=== PATIENT | female | born 1955 | race Caucasian/White ===

== ENCOUNTER 2016-03-26 14:42 | Outpatient (CLI) | payer BC | END 2016-03-26 14:43 | disposition home or self-care (01) | DX: Z01.818 Encounter for other preprocedural examination (principal) ==

== ENCOUNTER 2016-04-23 14:22 | Outpatient (CLI) | payer BC | END 2016-04-23 14:23 | disposition home or self-care (01) | DX: Z01.818 Encounter for other preprocedural examination (principal) ==

== ENCOUNTER 2016-06-27 07:27 | Outpatient (CLI) | payer BC ==
[2016-06-27 08:15] LABS: ALBUMIN/GLOBULIN RATIO 1.7 (1.0-2.2); BILIRUBIN,TOTAL 0.6 mg/dL (0.2-1.0); BUN - BLOOD UREA NITROGEN 15 mg/dL (6-20); CALCIUM 9.4 mg/dL (8.5-10.3); CARBON DIOXIDE - CO2 28 mmol/L (21-32); CHLORIDE 107 mmol/L (101-111); CHOLESTEROL 171 mg/dL; CREATININE 0.6 mg/dL (0.4-1.0); GFR - MDRD 102 (>89); GLUCOSE 88 mg/dL (70-100); HDL CHOLESTEROL 84 mg/dL; SODIUM 143 mmol/L (135-145); TOTAL PROTEIN 7.2 g/dL (6.7-8.2); TRIGLYCERIDES 38 mg/dL
[2016-06-27 08:37] LABS: HEMOGLOBIN A1C 0.94 g/dL
[2016-06-27 08:38] LABS: LDL CHOLESTEROL,DIRECT 76 mg/dL
== END 2016-06-27 07:28 | disposition home or self-care (01) ==
LOC: LAB 07:27
PROVIDERS: ATTEND Nurse Practitioner Family
DX: E11.9 Type 2 diabetes mellitus without complications (principal); E78.5 Hyperlipidemia, unspecified; F32.9 Major depressive disorder, single episode, unspecified
CPT/HCPCS: 36415; 80053; 80061; 82043; 83036; 84443

== ENCOUNTER 2016-09-22 08:00 | Outpatient (CLI) | payer BC ==
[2016-09-22 18:57] LABS: ALBUMIN/GLOBULIN RATIO 1.6 (1.0-2.2); BILIRUBIN,TOTAL 0.7 mg/dL (0.2-1.0); CREATININE 0.6 mg/dL (0.4-1.0); POTASSIUM 3.9 mmol/L (3.5-5.0); TOTAL PROTEIN 6.8 g/dL (6.7-8.2)
[2016-09-22 19:06] LABS: HEMOGLOBIN A1C 0.96 g/dL
== END 2016-09-22 08:01 | disposition home or self-care (01) ==
LOC: LAB.S 08:00
PROVIDERS: ATTEND Nurse Practitioner Family
DX: E11.9 Type 2 diabetes mellitus without complications (principal)
CPT/HCPCS: 36415; 80053; 83036; 84443

== ENCOUNTER 2017-01-14 14:02 | Emergency (ER) | payer OTHER, BC ==
--- NOTE | 2017-01-14 15:26 | XRAY Preliminary Report ---
Exam: XR RIBS W/PA CHEST RT IMPRESSION: Normal chest and rib radiography. [facility] SITE ID: [id number]
--- NOTE | 2017-01-14 15:32 | XRAY Preliminary Report ---
Exam: XR KNEE 4 VIEW LT IMPRESSION: Normal knee radiography. [facility] SITE ID: [id number]
--- NOTE | 2017-01-14 15:42 | XRAY Report ---
EXAM: RIGHT RIB RADIOGRAPHY EXAM DATE: 01/14/2017 02:59 PM. CLINICAL HISTORY: Right rib pain after a fall. COMPARISON: None. TECHNIQUE: 1 view of the chest and 4 views of the ribs. FINDINGS: Bones: Normal. No fracture or bone lesion. A marker was placed in the area of concern and this corres ponds to the anterior aspects of the right seventh and eighth ribs. Lungs: No focal opacities. No pneumothorax. No pleural effusions. Mediastinum: Heart and mediastinal contours are unremarkable. Other: None. IMPRESSION: Normal chest and rib radiography. [facility] Referring Provider Line: [phone] SITE ID: [id number]
--- NOTE | 2017-01-14 15:42 | XRAY Report ---
EXAM: LEFT KNEE RADIOGRAPHY EXAM DATE: 01/14/2017 02:59 PM. CLINICAL HISTORY: Pain after fall. COMPARISON: None. TECHNIQUE: 5 views. FINDINGS: Bones: Normal. No fractures or bone lesions. Joints: Normal. No effusion. No subluxations. Soft Tissues: Normal. No soft tissue swelling. IMPRESSION: Normal knee radiography. [facility] Referring Provider Line: [phone] SITE ID: [id number]
--- NOTE | 2017-01-14 15:51 | ED Physician Documentation ---
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 Rhamnosus GG/Inulin [Culturelle 1 each PO DAILY #14 cap.sprink 03/04/1305/24 Capsule] Metformin HCl [Metformin HCl ER] 1,000 mg PO BID 03/04/13 05/24/14 Zafirlukast 20 mg PO BID 03/04/13 05/24/14 glipiZIDE [Glucotrol] 5 mg PO BID 03/04/13 05/24/14 ALPRAZolam [Xanax] 0.125 - 0.25 mg PO Q6H PRN 03/30/14 05/24/14 Cholecalciferol (Vitamin D3) 1,000 unit PO DAILY 03/30/14 05/24/14 [Vitamin D3] Hyoscyamine [Levsin] 0.125 mg SL TID PRN 03/30/14 05/24/14 Insulin Glargine [Lantus Solostar] 15 unit SUBQ QPM 03/30/14 05/24/14 Propranolol HCl 20 mg PO DAILY PRN 03/30/14 05/24/14 Atorvastatin Calcium [Lipitor] 20 mg PO DAILY 05/24/14 05/24/14 Cyclobenzaprine [Flexeril] 10 mg PO TID PRN #20 tablet 05/24/14 05/24/14 Ibuprofen [Motrin] 400 mg PO Q6H PRN #30 tablet 05/24/14 05/24/14 Oxycodone HCl/Acetaminophen 1 - 2 each PO Q6H PRN #20 tablet 05/24/14 05/24/14 [Percocet 5-325 mg Tablet] Ibuprofen [Motrin] 400 mg PO Q6H PRN #30 tablet 01/14/17 Lidocaine Patch 5% [Lidoderm Patch] 1 each TOP DAILY PRN #10 patch 01/14/17 - Allergies Allergies/Adverse Reactions: Allergies Allergy/AdvReac Type Severity Reaction Status Date / Time sulfamethoxazole Allergy Hives Verified 01/14/17 14:15 [From Bactrim] trimethoprim [From Bactrim] Allergy Hives Verified 01/14/17 14:15 - Social History Does the pt smoke?: No Smoking Status: Never smoker Does the pt drink ETOH?: No Does the pt have substance abuse?: No - Immunizations Immunizations are current?: Yes - POLST Patient has POLST: No PD ED PE NORMAL - Vitals Vital signs reviewed: Yes - HEENT HEENT: Atraumatic - Neck Neck: No bony TTP - Cardiac Cardiac: RRR. No: No murmur (+ murmur not new per pt) - Respiratory Respiratory: No respiratory distress, Clear bilaterally, Other (TTP lateral low R ribs s crepitus) - Abdomen Abdomen: Soft, Non tender, Other (no ruq TTP) - Derm Derm: Normal color - Extremities Extremities: Other (L knee TTP ant lat lt line and patella, quad and patellar tendn NT, no MCL LCL ACL laxity, nl pain catch with meniscal tesnting, MSV intact) Results - Vitals Vitals: Vital Signs - 24 hr 01/14/17 14:10 Temperature 36.3 C L Heart Rate 74 Respiratory 18 Rate Blood Pressure 137/80 H O2 Saturation 100 Oxygen O2 Source Room air - Rads (name of study) ribs Radiology: See rad report (neg) knee Radiology: See rad report (neg) Departure - Departure Disposition: 01 Home, Self Care Clinical Impression: Contusion of rib on right side Qualifiers: Encounter type: initial encounter Qualified Code(s): S20.211A - Contusion of right front wall of thorax, initial encounter Contusion of knee, left Qualifiers: Encounter type: initial encounter Qualified Code(s): S80.02XA - Contusion of left knee, initial encounter Condition: Good Instructions: ED Contusion Rib Follow-Up: Payal Mckay ARNP [Primary Care Provider] - Prescriptions: Ibuprofen [Motrin] 400 mg PO Q6H PRN #30 tablet PRN Reason: Pain Lidocaine Patch 5% [Lidoderm Patch] 1 each TOP DAILY PRN #10 patch PRN Reason: Pain Comments: The xrays are fine - no broken knee or ribs Recommend applying a lidocaine patch to your ribs for 12 hr a day and using an TRINITY wrap for your knee Ice to both areas for 20 min several times a day will help too. Motrin and tylenol for pain in addition to the lidocaine patch Forms: Activity restrictions
[2017-01-14] MEDS ORDERED: LIDOCAINE PATCH 5% TOP STA (15:57)
[2017-01-14] MEDS ORDERED: IBUPROFEN 400 MG TABLET PO STA (15:57)
[2017-01-14 16:13] VITALS: BP 112/78
[2017-01-14] MEDS ORDERED: LIDOCAINE PATCH 5% TOP ONE (16:17)
[2017-01-14] MEDS ORDERED: IBUPROFEN 400 MG TABLET PO ONE (16:17)
== END 2017-01-14 16:19 | disposition home or self-care (01) ==
LOC: ED 14:02
DX: S20.211A Contusion of right front wall of thorax, initial encounter (principal); S80.02XA Contusion of left knee, initial encounter; W01.0XXA Fall on same level from slipping, tripping and stumbling without subsequent striking against object, initial encounter; E11.9 Type 2 diabetes mellitus without complications; Z79.4 Long term (current) use of insulin; E78.00 Pure hypercholesterolemia, unspecified; J45.909 Unspecified asthma, uncomplicated
CPT/HCPCS: 1040M; 71101; 73564; 99283; A9270

== ENCOUNTER 2017-05-01 08:00 | Outpatient (CLI) | payer BC ==
[2017-05-01 18:49] LABS: HB2 TOTAL 14.4 g/dL; HEMOGLOBIN A1C 0.94 g/dL; HEMOGLOBIN A1C % 8.1 % (4.6-6.2)
== END 2017-05-01 08:01 | disposition home or self-care (01) ==
LOC: LAB.F 08:00
PROVIDERS: ATTEND Nurse Practitioner Family
DX: E11.9 Type 2 diabetes mellitus without complications (principal)
CPT/HCPCS: 36415; 83036

== ENCOUNTER 2017-07-30 07:13 | Outpatient (CLI) | payer BC ==
[2017-07-30 11:50] LABS: BASOPHILS % (AUTO) 1.1 %; EOSINOPHILS # (AUTO) 0.3 10^3/uL (0.0-0.7); EOSINOPHILS % (AUTO) 7.4 %; HGB - HEMOGLOBIN 13.4 g/dL (12.0-16.0); LYMPHOCYTES # (AUTO) 1.6 10^3/uL (1.5-3.5); LYMPHOCYTES % (AUTO) 36.5 %; MEAN CORPUSCULAR HEMOGLOBIN 32.2 pg (27.0-31.0); MEAN CORPUSCULAR HGB CONC 33.9 g/dL (32.0-36.0); MEAN CORPUSCULAR VOLUME 94.8 fL (81.0-99.0); MEAN PLATELET VOLUME 9.7 fL (7.9-10.8); MONOCYTES # (AUTO) 0.3 10^3/uL (0.0-1.0); MONOCYTES % (AUTO) 6.1 %; NEUTROPHILS # (AUTO) 2.1 10^3/uL (1.5-6.6); NEUTROPHILS % (AUTO) 48.9 %; PLT - PLATELET COUNT 286 10^3/uL (130-450); RED BLOOD COUNT 4.16 10^6/uL (4.20-5.40); RED CELL DISTRIBUTION WIDTH 13.3 % (12.0-15.0); WHITE BLOOD COUNT 4.3 x10^3/uL (4.8-10.8)
[2017-07-30 12:20] LABS: ALBUMIN 3.9 g/dL (3.2-5.5); ALBUMIN/GLOBULIN RATIO 1.3 (1.0-2.2); ALKALINE PHOSPHATASE 73 IU/L (42-121); ALT ALANINE AMINOTRANSFERASE 19 IU/L (10-60); AST ASPARTATE AMINOTRANSFERASE 19 IU/L (10-42); BILIRUBIN,TOTAL 0.6 mg/dL (0.2-1.0); BUN - BLOOD UREA NITROGEN 14 mg/dL (6-20); CALCIUM 8.9 mg/dL (8.5-10.3); CARBON DIOXIDE - CO2 27 mmol/L (21-32); CHLORIDE 103 mmol/L (101-111); CHOL/HDL RATIO 2.2 (<4.4); CHOLESTEROL 157 mg/dL; CREATININE 0.8 mg/dL (0.4-1.0); GFR - MDRD 73 (>89); GLUCOSE 199 mg/dL (70-100); HDL CHOLESTEROL 72 mg/dL; LDL CHOLESTEROL,CALCULATED 76 mg/dL; LDL/HDL RATIO 1.1 (<4.4); SODIUM 136 mmol/L (135-145); TOTAL PROTEIN 6.9 g/dL (6.7-8.2); VLDL CHOLESTEROL 9 mg/dL
[2017-07-30 12:42] LABS: HB2 TOTAL 14.4 g/dL; HEMOGLOBIN A1C 0.86 g/dL; HEMOGLOBIN A1C % 7.6 % (4.6-6.2)
== END 2017-07-30 07:14 | disposition home or self-care (01) ==
LOC: LAB.F 07:13
PROVIDERS: ATTEND Nurse Practitioner Family
DX: Z79.4 Long term (current) use of insulin (principal); E78.5 Hyperlipidemia, unspecified; E11.9 Type 2 diabetes mellitus without complications; F32.9 Major depressive disorder, single episode, unspecified
CPT/HCPCS: 36415; 80053; 80061; 82043; 83036; 83721; 84443; 85025

== ENCOUNTER 2018-02-19 07:05 | Outpatient (CLI) | payer BC ==
[2018-02-19 11:51] LABS: ALBUMIN 4.1 g/dL (3.2-5.5); ALBUMIN/GLOBULIN RATIO 1.4 (1.0-2.2); BILIRUBIN,TOTAL 0.5 mg/dL (0.2-1.0); CALCIUM 9.6 mg/dL (8.5-10.3); CREATININE 0.6 mg/dL (0.4-1.0)
[2018-02-19 12:16] LABS: HB2 TOTAL 15.1 g/dL; HEMOGLOBIN A1C 1.04 g/dL; HEMOGLOBIN A1C % 8.5 % (4.6-6.2)
== END 2018-02-19 07:06 | disposition home or self-care (01) ==
LOC: LAB.F 07:05
PROVIDERS: ATTEND Nurse Practitioner Family
DX: E11.9 Type 2 diabetes mellitus without complications (principal); F32.9 Major depressive disorder, single episode, unspecified
CPT/HCPCS: 36415; 80053; 82043; 83036; 84443

== ENCOUNTER 2018-03-31 16:00 | Outpatient (CLI) | payer BC ==
--- NOTE | 2018-04-01 08:24 | Mammography Report ---
Reason: SCREENING MAMMO Procedure Date: 03/31/2018 Accession Number: [id number] / [id number] Procedure: SHIRA - Screening Mammo w/Ayo CPT Code: FULL RESULT: EXAM: Screening Mammo w/Ayo DATE: 03/31/2018 4:34 PM CLINICAL HISTORY: Screening encounter. No reported risk factors. TECHNIQUE: Bilateral CC and MLO views were obtained. COMPARISON: 07/24/2009. FINDINGS: The breasts demonstrate scattered fibroglandular densities bilaterally. In the left upper outer breast approximately 11 cm from the nipple, also seen on the left MLO image 21 is a 0.6 cm ill-defined hyperdense nodule with partially obscured margins which requires additional imaging by spot views and ultrasound. While the finding is identified on the cc view, exact localization of depth on the tomographic CC images is difficult raising the question of at least partial contribution by tissue overlap. No suspicious masses, clustered microcalcifications, or regions of architectural distortion are identified in the right breast. IMPRESSION: Incomplete examination RECOMMENDATION: Additional evaluation of the left upper outer breast by spot views and ultrasound as described. BIRADS CATEGORY 0: Incomplete examination STANDARD QUALIFYING STATEMENTS: 1. This examination was not reviewed with the aid of Computer-Aided Detection (CAD). 2. A negative or benign imaging report should not delay biopsy if clinically suspicious findings are present. Consider surgical consultation if warrented. More than 5% of cancers are not identified by imaging. 3. Dense breasts may obscure an underlying neoplasm. 4. This examination was reviewed with the aid of 3D breast imaging (tomosynthesis).
== END 2018-03-31 16:01 | disposition home or self-care (01) ==
LOC: DI 16:00
PROVIDERS: ATTEND Nurse Practitioner Family
DX: Z12.31 Encounter for screening mammogram for malignant neoplasm of breast (principal)
CPT/HCPCS: 77063; 77067

== ENCOUNTER 2018-04-07 14:19 | Outpatient (CLI) | payer BC ==
--- NOTE | 2018-04-07 16:26 | Mammography Report ---
Reason: ABN MAMMO - LT SPEC VIEWS Procedure Date: 04/07/2018 Accession Number: [id number] / [id number] Procedure: SHIRA - Diag Special Views Dig LT CPT Code: FULL RESULT: EXAM: Diag Special Views Dig LT DATE: 04/07/2018 3:08 PM CLINICAL HISTORY: Diagnostic mammogram. The patient is recalled from screening for a finding in the left upper outer breast. TECHNIQUE: Left breast spot CC, spot MLO and ML views are obtained. COMPARISON: 03/31/2018 and 07/24/2009. FINDINGS: The left breast demonstrates scattered fibroglandular densities. The previously seen finding characterized as a hyperdense partially obscured nodule is identified as overlap of normal tissue on spot views in all projections, typically benign finding. No suspicious masses, architectural distortions or calcifications are identified. IMPRESSION: Benign findings RECOMMENDATION: Recommend routine annual Screening mammography unless otherwise clinically indicated. BIRADS CATEGORY 2: Benign findings STANDARD QUALIFYING STATEMENTS: 1. This examination was not reviewed with the aid of Computer-Aided Detection (CAD). 2. A negative or benign imaging report should not delay biopsy if clinically suspicious findings are present. Consider surgical consultation if warrented. More than 5% of cancers are not identified by imaging. 3. Dense breasts may obscure an underlying neoplasm. 4. This examination was reviewed with the aid of 3D imaging (tomography).
== END 2018-04-07 14:20 | disposition home or self-care (01) ==
LOC: DI 14:19
PROVIDERS: ATTEND Nurse Practitioner Family
DX: R92.2 Inconclusive mammogram (principal)

== ENCOUNTER 2018-09-30 06:56 | Outpatient (CLI) | payer BC ==
[2018-09-30 11:27] LABS: HB2 TOTAL 14.1 g/dL; HEMOGLOBIN A1C 0.83 g/dL; HEMOGLOBIN A1C % 7.5 % (4.6-6.2)
== END 2018-09-30 06:57 | disposition home or self-care (01) ==
LOC: LAB.S 06:56
PROVIDERS: ATTEND Registered Nurse
DX: E11.9 Type 2 diabetes mellitus without complications (principal)
CPT/HCPCS: 36415; 83036

== ENCOUNTER 2018-12-24 07:02 | Outpatient (CLI) | payer BC ==
[2018-12-24 10:52] LABS: HB2 TOTAL 14.3 g/dL; HEMOGLOBIN A1C 0.78 g/dL; HEMOGLOBIN A1C % 7.1 % (4.6-6.2)
== END 2018-12-24 07:03 | disposition home or self-care (01) ==
LOC: LAB.S 07:02
PROVIDERS: ATTEND Registered Nurse
DX: E11.9 Type 2 diabetes mellitus without complications (principal)
CPT/HCPCS: 36415; 83036

== ENCOUNTER 2019-02-16 08:38 | Outpatient (CLI) | payer BC ==
[2019-02-16 16:57] LABS: BASOPHILS # (AUTO) 0.1 10^3/uL (0.0-0.1); BASOPHILS % (AUTO) 1.1 %; EOSINOPHILS # (AUTO) 0.5 10^3/uL (0.0-0.7); EOSINOPHILS % (AUTO) 7.1 %; HGB - HEMOGLOBIN 13.6 g/dL (12.0-16.0); LYMPHOCYTES # (AUTO) 1.7 10^3/uL (1.5-3.5); LYMPHOCYTES % (AUTO) 27.5 %; MEAN CORPUSCULAR HEMOGLOBIN 32.1 pg (27.0-31.0); MEAN CORPUSCULAR HGB CONC 32.5 g/dL (32.0-36.0); MEAN CORPUSCULAR VOLUME 98.8 fL (81.0-99.0); MEAN PLATELET VOLUME 11.4 fL (7.9-10.8); MONOCYTES # (AUTO) 0.4 10^3/uL (0.0-1.0); MONOCYTES % (AUTO) 5.9 %; NEUTROPHILS # (AUTO) 3.7 10^3/uL (1.5-6.6); NEUTROPHILS % (AUTO) 58.2 %; PLT - PLATELET COUNT 337 10^3/uL (130-450); RED BLOOD COUNT 4.24 10^6/uL (4.20-5.40); RED CELL DISTRIBUTION WIDTH 12.6 % (12.0-15.0); WHITE BLOOD COUNT 6.3 x10^3/uL (4.8-10.8)
[2019-02-16 17:23] LABS: ALBUMIN 4.4 g/dL (3.2-5.5); ALBUMIN/GLOBULIN RATIO 1.9 (1.0-2.2); ALKALINE PHOSPHATASE 68 IU/L (42-121); ALT ALANINE AMINOTRANSFERASE 16 IU/L (10-60); AST ASPARTATE AMINOTRANSFERASE 17 IU/L (10-42); BUN - BLOOD UREA NITROGEN 17 mg/dL (6-20); CALCIUM 9.1 mg/dL (8.5-10.3); CARBON DIOXIDE - CO2 27 mmol/L (21-32); CHLORIDE 105 mmol/L (101-111); CHOL/HDL RATIO 2.7 (<4.4); CHOLESTEROL 256 mg/dL; CREATININE 0.6 mg/dL (0.4-1.0); GFR - MDRD 102 (>89); GLUCOSE 143 mg/dL (70-100); HDL CHOLESTEROL 94 mg/dL; LDL CHOLESTEROL,CALCULATED 145 mg/dL; LDL/HDL RATIO 1.5 (<4.4); SODIUM 140 mmol/L (135-145); TOTAL PROTEIN 6.7 g/dL (6.7-8.2); VLDL CHOLESTEROL 17 mg/dL
[2019-02-16 17:32] LABS: HB2 TOTAL 13.2 g/dL; HEMOGLOBIN A1C 0.81 g/dL; HEMOGLOBIN A1C % 7.8 % (4.6-6.2)
== END 2019-02-16 08:39 | disposition home or self-care (01) ==
LOC: LAB.S 08:38
PROVIDERS: ATTEND Registered Nurse
DX: E11.9 Type 2 diabetes mellitus without complications (principal); E78.5 Hyperlipidemia, unspecified; J45.909 Unspecified asthma, uncomplicated
CPT/HCPCS: 36415; 80053; 80061; 83036; 83721; 84443; 85025

== ENCOUNTER 2019-04-05 08:34 | Outpatient (CLI) | payer BC | END 2019-04-05 23:59 | disposition home or self-care (01) | LOC: LAB.R 08:34 | PROVIDERS: ATTEND Registered Nurse | DX: J02.9 Acute pharyngitis, unspecified (principal) | CPT/HCPCS: 87070 ==

== ENCOUNTER 2019-09-02 09:43 | Outpatient (CLI) | payer BC ==
[2019-09-02 11:04] VITALS: BP 128/74
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
== END 2019-09-02 09:44 | disposition home or self-care (01) ==
LOC: SC 09:43
PROVIDERS: ATTEND Nurse Practitioner Family
DX: G47.00 Insomnia, unspecified (principal); R06.83 Snoring; G47.9 Sleep disorder, unspecified; R41.3 Other amnesia; G47.10 Hypersomnia, unspecified; J39.8 Other specified diseases of upper respiratory tract; E66.9 Obesity, unspecified; Z68.30 Body mass index [BMI] 30.0-30.9, adult; Z82.0 Family history of epilepsy and other diseases of the nervous system
CPT/HCPCS: 99204; 99212

== ENCOUNTER → 2019-10-02 | Outpatient (CLI) | payer BC | LOC: SC 19:30 | PROVIDERS: ATTEND Nurse Practitioner Family | DX: R06.83 Snoring (principal); G47.10 Hypersomnia, unspecified; R53.83 Other fatigue; G47.8 Other sleep disorders; E11.9 Type 2 diabetes mellitus without complications; E66.3 Overweight; Z68.30 Body mass index [BMI] 30.0-30.9, adult | CPT/HCPCS: 95806 ==

== ENCOUNTER 2019-12-29 09:04 | Outpatient (CLI) | payer BC ==
--- NOTE | 2019-12-29 08:59 | SLEEP CARE CONSULTATION ---
Information from patient questionnaire entered by Sierra Vora. I have reviewed and concur with the information entered by Sierra Vora. This document represents the service I personally performed and the decisions made by , Arelis Phillips ARNP. History of Present Illness Service Date and Time: 12/29/2019 0840 Initial [place] Sleepiness Scale score: 5 (in 2020) Current [place] Sleepiness Scale score: 4 Additional HPI information: ANU CRUMP returns via Telehealth visit for follow up and results of the recently performed home sleep study. The patient was informed of the following findings: no significant sleep diso rdered breathing with an AHI 3.4 and sarina oxygen saturation of 68.7%. I explained the pathophysiology behind obstructive sleep apnea. Patient does not have sleep apnea and was advised how weight gain could increase the risk of developing sleep apnea in the future. Patient does not have significant sleep disordered breathing but has elevated AHI in supine position so advised positional therapy. Methods to achieve positional management therapy were discussed. Patient has light snoring. Snoring can be reduced by weight loss. Weight loss is best achieved with diet consult. Patient instructed to contact PCP for referral. Snoring can also be treated with an oral appliance from a dentist. Advised to check insurance coverage. In addition, an ENT evaluation can be do to see if other treatment is indicated. Patient counseled not drink alcohol less than 4 hours before bedtime as it can increase snoring and apnea. Patient was cautioned about risks of drowsy driving until sleepiness symptoms resolve. Sleep Study - Results Type of Sleep Study: Home sleep study Prior sleep studies: No Polysomnography/Home Sleep Study results: Based on 4% Calculation: The AHI 4% calculation of 3.4 per hour of recording time was based on a total of 24 scored apneas and 9 scored hypopneas with 4% desaturations. Supine AHI4%: 6.4 per hour. Non-supine AHI4%: 2.6 per hour. Oxygen Summary: Patient's baseline O2 saturation was 95.1 %. The patient spent 3.0 minutes at an oxygen saturation less than 90%, and 1.2 minutes less than 85%. The desaturation index was 3.4 events per hour sleep time. The lowest saturation was 68.7 %. SNORING: The percent of the study time spent snoring was 0.0 %. The Snoring Count was 1 . The Snoring Index was 0.1 . PULSE RATE REVIEW: The mean heart rate was 64 beats per minute. The rate ranged from a low of 37 to a high of 90 beats per minute. Allergies and Home Medications Drug allergies reviewed: Yes (sulfa, trimethoprim) Home medication list reviewed: Yes (amytriptyline for sleep) Review of Systems Review of systems same as previous: Yes (no changes) Physical Exam Vital signs obtained and entered by: Telehealth visit to reduce exposure during Covid pandemic, no vitals Height: 5 ft 4 in Impression and Plan Snoring but no significant sleep disordered breathing. Patient advised that often weight loss will reduce snoring as well as apnea risk. An oral appliance can also be used for snoring. This would require a dental consultation. Patient cautioned not to use other online appliances as can cause bite issues. A list of accredited dentists in area and one local dentist who makes oral appliances given. Patient is advised to check if insurance will cover. An ENT consult can also be helpful to determine if any other treatment is an option. * Attempt to lose weight * Avoid alcohol consumption near bedtime * The patient is cautioned about driving until sleepiness is completely resolved. * Return as needed. Counseling Topics: Sleeping position, Weight loss health impact Visit Type: Telehealth Phone Patient Location: at work Location of Provider: Office Patient agrees and consents to this telehealth visit type: Yes Patient agrees to have their insurance billed: Yes Time Spent with Patient (minutes): 15 Provider Statement: I spent 100% of the Telehealth Phone Call with the patient with greater than 50% spent counseling the patient and coordination of care.
== END 2019-12-29 09:05 | disposition home or self-care (01) ==
LOC: SC 09:04
PROVIDERS: ATTEND Nurse Practitioner Family
DX: R06.83 Snoring (principal)

== ENCOUNTER 2020-01-27 10:50 | Outpatient (CLI) | payer BC | END 2020-01-27 23:59 | LOC: LAB.R 10:50 | PROVIDERS: ATTEND Emergency Medicine | DX: R53.83 Other fatigue (principal); Z20.828 Contact with and (suspected) exposure to other viral communicable diseases ==

== ENCOUNTER 2020-01-27 10:56 | Outpatient (CLI) | payer BC ==
--- NOTE | 2020-01-27 11:26 | XRAY Report ---
PROCEDURE: Chest 2 View X-Ray INDICATIONS: Cough and fatigue TECHNIQUE: 2 view(s) of the chest. COMPARISON: None. FINDINGS: Surgical changes and devices: None. Lungs and pleura: No pleural effusions or pneumothorax. Lungs are clear. Mediastinum: Mediastinal contours are normal. Heart size is normal. Bones and chest wall: No suspicious bony abnormalities. Soft tissues appear unremarkable. IMPRESSION: No acute cardiopulmonary process demonstrated radiographically. Reviewed by: Fransico Catherine MD on 01/27/2020 10:24 AM [facility] Approved by: Fransico Catherine MD on 01/27/2020 10:24 AM [facility] Station ID: [id number]
== END 2020-01-27 23:59 | disposition home or self-care (01) ==
LOC: DI.S 10:56
PROVIDERS: ATTEND Emergency Medicine
DX: R05 Cough (principal); R53.83 Other fatigue

== ENCOUNTER 2020-03-09 07:38 | Outpatient (CLI) | payer BC ==
--- NOTE | 2020-03-09 16:47 | XRAY Report ---
PROCEDURE: Hips 3-4V BILAT INDICATIONS: TROCHANTERIC BURSITIS, BILATERAL TECHNIQUE: AP view of the pelvis and crosstable lateral views of each hip. COMPARISON: None. FINDINGS: Bones: No acute fractures or dislocations. No suspicious bony lesions. The visualized pelvic ring appears intact. Mild degenerative changes are seen in the hips bilaterally as well as in the pubic s ymphysis. Soft tissues: No suspicious soft tissue calcifications or masses. Surgical clips are seen projectin g over the right groin. Additional surgical clips projecting over the pelvis bilaterally are likely r elated to prior tubal occlusion. IMPRESSION: No acute osseous abnormality. Mild degenerative changes in the hips bilaterally. Reviewed by: Jasiel Romano MD on 03/09/2020 4:45 PM PST Approved by: Jasiel Romano MD on 03/09/2020 4:45 PM PST Station ID: [id number]
== END 2020-03-09 23:59 | disposition home or self-care (01) ==
LOC: DI.N 07:38
PROVIDERS: ATTEND Physician Assistant
DX: M70.60 Trochanteric bursitis, unspecified hip (principal); M16.0 Bilateral primary osteoarthritis of hip

== ENCOUNTER 2020-05-29 10:10 | Outpatient (CLI) | payer BC ==
[2020-05-29 15:20] LABS: CALCIUM 9.3 mg/dL (8.5-10.3); CREATININE 0.6 mg/dL (0.4-1.0); POTASSIUM 4.4 mmol/L (3.5-5.0)
[2020-05-29 19:44] LABS: ESTIMATED AVERAGE GLUCOSE 186 mg/dL (70-100); HEMOGLOBIN A1c% 8.1 % (4.27-6.07)
== END 2020-05-29 10:11 | disposition home or self-care (01) ==
LOC: LAB.S 10:10
PROVIDERS: ATTEND Registered Nurse
DX: E11.649 Type 2 diabetes mellitus with hypoglycemia without coma (principal)
CPT/HCPCS: 36415; 80048; 83036

== ENCOUNTER 2020-08-30 08:00 | Outpatient (CLI) | payer BC ==
[2020-08-30 18:07] LABS: CALCIUM 9.1 mg/dL (8.5-10.3); CREATININE 0.9 mg/dL (0.4-1.0); POTASSIUM 4.3 mmol/L (3.5-5.0)
[2020-08-30 20:19] LABS: ESTIMATED AVERAGE GLUCOSE 169 mg/dL (70-100); HEMOGLOBIN A1c% 7.5 % (4.27-6.07)
== END 2020-08-30 23:59 | disposition home or self-care (01) ==
LOC: LAB.N 08:00
PROVIDERS: ATTEND Registered Nurse
DX: E11.9 Type 2 diabetes mellitus without complications (principal)
CPT/HCPCS: 36415; 80048; 83036

== ENCOUNTER 2020-08-30 12:00 | Outpatient (CLI) | payer BC | END 2020-08-30 12:01 | disposition home or self-care (01) | LOC: LAB.N 12:00 | PROVIDERS: ATTEND Registered Nurse | DX: E11.9 Type 2 diabetes mellitus without complications (principal) ==

== ENCOUNTER 2020-09-26 12:00 | Outpatient (CLI) | payer BC ==
--- NOTE | 2020-09-27 09:37 | Mammography Report ---
BILATERAL DIGITAL SCREENING MAMMOGRAM 3D/2D: 09/26/2020 CLINICAL: Routine screening. Comparison is made to exams dated: 04/07/2018 mammogram, 03/31/2018 mammogram, and 07/24/2009 mammogram - [facility]. There are scattered fibroglandular elements in both breasts. No significant masses, calcifications, or other findings are seen in either breast. There has been no significant interval change. IMPRESSION: NEGATIVE There is no mammographic evidence of malignancy. A 1 year screening mammogram is recommended. This exam was interpreted at Station ID: [id number]. NOTE: For mammograms, a report in lay terms will be sent to the patient. Approximately 15% of breast malignancies will not be visualized mammographically. In the management of a palpable breast mass, a negative mammogram must not discourage biopsy of a clinically suspicious lesion. Electronically Signed By: Jasiel Romano M.D. ar/[email or web address]:09/26/2020 13:30:23 ACR BI-RADS Category 1: Negative 3341F PARENCHYMAL PATTERN: (A) - The breast(s) demonstrate(s) scattered fibroglandular densities. BI-RADS CATEGORY: (1) - 1 RECOMMENDATION: (ANNUAL) - Recommend routine annual screening mammography. [id number] 1 year screening LATERALITY: (B)
== END 2020-09-26 12:01 | disposition home or self-care (01) ==
LOC: DI.N 12:00
DX: Z12.31 Encounter for screening mammogram for malignant neoplasm of breast (principal)

== ENCOUNTER 2021-02-14 08:42 | Outpatient (CLI) | payer BC ==
[2021-02-14 12:15] LABS: CALCIUM 9.7 mg/dL (8.5-10.3); POTASSIUM 4.4 mmol/L (3.5-5.0)
[2021-02-14 15:16] LABS: ESTIMATED AVERAGE GLUCOSE 186 mg/dL (70-100); HEMOGLOBIN A1c% 8.1 % (4.27-6.07)
== END 2021-02-14 08:43 | disposition home or self-care (01) ==
LOC: LAB.N 08:42
PROVIDERS: ATTEND Registered Nurse
DX: E11.9 Type 2 diabetes mellitus without complications (principal)
CPT/HCPCS: 36415; 80048; 83036

== ENCOUNTER 2021-06-14 10:38 | Outpatient (CLI) | payer BC ==
[2021-06-14 12:13] LABS: CREATININE,URINE 96.8 mg/dL; MICROALBUM/CREATININE RATIO,UR 3.1 ug/mg (<30.0); MICROALBUMIN,URINE 0.3 mg/dL (0-300.0)
[2021-06-14 12:20] LABS: BASOPHILS # (AUTO) 0.1 10^3/uL (0.0-0.1); BASOPHILS % (AUTO) 1.2 %; EOSINOPHILS # (AUTO) 0.5 10^3/uL (0.0-0.7); EOSINOPHILS % (AUTO) 8.8 %; HCT - HEMATOCRIT 40.5 % (37.0-47.0); HGB - HEMOGLOBIN 13.3 g/dL (12.0-16.0); LYMPHOCYTES # (AUTO) 1.2 10^3/uL (1.5-3.5); LYMPHOCYTES % (AUTO) 22.9 %; MEAN CORPUSCULAR HEMOGLOBIN 31.3 pg (27.0-31.0); MEAN CORPUSCULAR HGB CONC 32.8 g/dL (32.0-36.0); MEAN CORPUSCULAR VOLUME 95.3 fL (81.0-99.0); MEAN PLATELET VOLUME 11.4 fL (7.9-10.8); MONOCYTES # (AUTO) 0.5 10^3/uL (0.0-1.0); MONOCYTES % (AUTO) 9.4 %; NEUTROPHILS % (AUTO) 57.7 %; PLT - PLATELET COUNT 290 10^3/uL (130-450); RED BLOOD COUNT 4.25 10^6/uL (4.20-5.40); RED CELL DISTRIBUTION WIDTH 13.9 % (12.0-15.0); WHITE BLOOD COUNT 5.1 x10^3/uL (4.8-10.8)
[2021-06-14 12:23] LABS: ALBUMIN 4.5 g/dL (3.2-5.5); ALBUMIN/GLOBULIN RATIO 1.5 (1.0-2.2); ALKALINE PHOSPHATASE 99 IU/L (42-121); ALT ALANINE AMINOTRANSFERASE 29 IU/L (10-60); AST ASPARTATE AMINOTRANSFERASE 19 IU/L (10-42); BILIRUBIN,TOTAL 0.6 mg/dL (0.2-1.0); BUN - BLOOD UREA NITROGEN 25 mg/dL (6-20); CALCIUM 9.8 mg/dL (8.5-10.3); CARBON DIOXIDE - CO2 28 mmol/L (21-32); CHLORIDE 102 mmol/L (101-111); CHOL/HDL RATIO 2.8 (<4.4); CHOLESTEROL 265 mg/dL; GFR - MDRD 56 (>89); GLUCOSE 149 mg/dL (70-100); HDL CHOLESTEROL 94 mg/dL; LDL CHOLESTEROL,CALCULATED 157 mg/dL; LDL/HDL RATIO 1.7 (<4.4); POTASSIUM 4.7 mmol/L (3.5-5.0); SODIUM 139 mmol/L (135-145); TOTAL PROTEIN 7.5 g/dL (6.7-8.2); TRIGLYCERIDES 68 mg/dL; VLDL CHOLESTEROL 14 mg/dL
[2021-06-14 12:28] LABS: THYROID STIMULATING HORMONE 4.19 uIU/mL (0.34-5.60)
[2021-06-14 12:41] LABS: ESTIMATED AVERAGE GLUCOSE 217 mg/dL (70-100); HEMOGLOBIN A1c% 9.2 % (4.27-6.07)
== END 2021-06-14 10:39 | disposition home or self-care (01) ==
LOC: LAB.N 10:38
PROVIDERS: ATTEND Registered Nurse
DX: E11.65 Type 2 diabetes mellitus with hyperglycemia (principal); Z79.899 Other long term (current) drug therapy; K58.9 Irritable bowel syndrome, unspecified; J45.909 Unspecified asthma, uncomplicated
CPT/HCPCS: 36415; 80053; 80061; 82043; 82570; 83036; 83721; 84443; 85025

== ENCOUNTER 2021-07-27 23:21 | Outpatient (CLI) | payer BC | END 2021-07-27 23:59 | disposition EMS.NT | LOC: EMS 23:21 | DX: R58 Hemorrhage, not elsewhere classified (principal) ==